=== PATIENT | female | born 1995 | race Caucasian/White ===

== ENCOUNTER 2020-07-25 20:52 | Emergency (ER) | payer OTHER ==
[2020-07-25 21:44] LABS: HEMOGLOBIN 11.8 gm/dl (12.3-15.3); RED BLOOD COUNT 4.65 M/UL (4.00-5.10); WHITE BLOOD COUNT 11.3 K/UL (4.5-11.0)
[2020-07-25 22:02] LABS: BUN/CREATININE RATIO 11 (0-10)
[2020-07-25] MEDS ORDERED: CEPHALEXIN500 MG PO (22:06)
[2020-07-25] MEDS ORDERED: ZOFRAN ODT 4 MG4 MG SL (22:06)
== END 2020-07-25 23:14 | disposition home or self-care (01) ==
LOC: ER1 20:52
PROVIDERS: Physician Assistant
DX: O23.41 Unspecified infection of urinary tract in pregnancy, first trimester (principal); Z79.899 Other long term (current) drug therapy
CPT/HCPCS: 80053; 81001; 85025; 87086; 96374; 96375; 99284; J0696; J2405